=== PATIENT | female | born 1980 | race Caucasian/White ===

== ENCOUNTER 2016-06-14 10:40 | Emergency (ER) | payer MEDICAID ==
[~2016-06-14] VITALS: Wt 69.0 kg
[2016-06-14 12:10] LABS: BASOPHILS % 0.4 % (0.0-2.0); EOSINOPHILS # 0.1 10^3/ul (0.0-0.5); EOSINOPHILS % 1.7 % (0.0-7.0); HEMATOCRIT 41.1 % (37.0-47.0); HEMOGLOBIN 13.7 g/dl (12.0-16.0); LYMPHOCYTES # 2.3 10^3/ul (0.8-2.9); LYMPHOCYTES % 30.4 % (15.0-51.0); MEAN CORPUSCULAR HEMOGLOBIN 29.5 pg (29.0-33.0); MEAN CORPUSCULAR HGB CONC 33.3 g/dl (32.0-37.0); MEAN CORPUSCULAR VOLUME 88.7 fl (82.0-101.0); MEAN PLATELET VOLUME 10.4 fl (7.4-10.4); MONOCYTE # 0.5 10^3/ul (0.3-0.9); MONOCYTES % 6.3 % (0.0-11.0); NEUTROPHIL # 4.7 10^3/ul (1.6-7.5); NEUTROPHILS % 61.2 % (39.0-77.0); PLATELET COUNT 194 10^3/UL (140-440); RED BLOOD COUNT 4.63 10^6/ul (4.20-5.40); RED CELL DISTRIBUTION WIDTH 13.6 % (11.5-14.5); UNCORRECTED WBC 7.7 10^3/ul (4.8-10.8); WHITE BLOOD COUNT 7.7 10^3/ul (4.8-10.8)
[2016-06-14 12:14] LABS: CONDITION 1
[2016-06-14 12:36] LABS: ADD UMIC YES; URINE BILIRUBIN (Dip) NEGATIVE (NEGATIVE); URINE BLOOD (Dip) 3+ (NEGATIVE); URINE COLOR LT. YELLOW (YELLOW); URINE GLUCOSE (Dip) NEGATIVE (NEGATIVE); URINE KETONES (Dip) NEGATIVE (NEGATIVE); URINE LEUKOCYTE ESTERASE (Dip) NEGATIVE (NEGATIVE); URINE NITRITE (Dip) NEGATIVE (NEGATIVE); URINE TOTAL PROTEIN (Dip) NEGATIVE (NEGATIVE); URINE UROBILINOGEN (Dip) 0.2 E.U./dL (0.1-1.0)
--- NOTE | 2016-06-14 12:55 | RADRPT ---
PROCEDURE: OBSTETRICAL ULTRASOUND WITH ENDOVAGINAL IMAGES CLINICAL INDICATION: Vaginal Bleed () TECHNIQUE: Multiple sonographic images of the pelvis were obtained utilizing a transabdominal and endovaginal technique. The images were reviewed on a PACS workstation. COMPARISON: Pelvic ultrasound from 03/20/2015 LMP: 04/21/2016 FINDINGS: There is a single intrauterine with mean sac diameter of 2.23 cm and crown-rump length of 0.45 cm which is consistent with a gestational age of 6 weeks, 4-day . The estimated date of delivery by ultrasound is 02/03/2017 . The estimated gestational age by LMP is 7 weeks, 5-day . The estimated date of delivery by LMP is 01/26/2017 . No heart tones are detected. The right ovary measures 2.0 x 1.4 x 1.3 cm. The left ovary measures 2.8 x 1.3 x 2.1 cm. There is no rmal vascular flow in both ovaries. No significant ovarian lesions are seen. No significant pelvic free fluid is identified. IMPRESSION: A single intrauterine gestation is identified with a gestational age of 6 weeks, 4 days which is wit hin 8 days of dating by LMP, as above. No heart tones are detected, likely due to the early n ature of the although early demise cannot be excluded in the setting of vaginal blee ding. Short-term follow-up ultrasound and serial Beta HCG measurements are recommended for further evaluation. Bilateral ovaries and adnexa are unremarkable. RPTAT: EE Physician Mike Date Time Electronically viewed and signed by Physician Mike on 06/14/2016 12:55 /
[2016-06-14 12:56] LABS: SQUAMOUS EPITHELIAL CELL,UR MODERATE; URINE RBCS 0-2 /HPF (0)
--- NOTE | 2016-06-14 13:33 | ERD ---
ER Documentation Chief Complaint Date/Time DATE: 06/14/16 TIME: 13:31 Chief Complaint mild abd pain and scant vag bleed for 3 days. no nausea vomitng HPI Patient is a 36-year-old female who was sent here by her OB doctor because they were unable to find heart tone on ultrasound. Patient is approximately 7 weeks as she is with 4 spontaneous abortions. She has had vaginal bleeding over the last 4 days as she states is very mild and light. She has no pain. She denies any dysuria hematuria or frequency. She denies any nausea or vomiting. ROS All systems reviewed and are negative except as per history of present illness. Allergies Allergies: Coded Allergies: No Known Allergy (Verified , 03/20/15) PMhx/Soc History of Surgery: Yes (C SECTION X2) Anesthesia Reaction: No Hx Neurological Disorder: No Hx Respiratory Disorders: No Hx Cardiac Disorders: No Hx Psychiatric Problems: No Hx Miscellaneous Medical Probl: No Hx Alcohol Use: No Hx Substance Use: No Hx Tobacco Use: No FmHx Family History: No diabetes Physical Exam Vitals Vital Signs Date Time Temp Pulse Resp B/P Pulse Ox O2 Delivery O2 Flow Rate FiO2 06/14/16 10:43 98.7 69 21 110/56 98 Physical Exam General: well developed, well nourished, alert, nontoxic, no distress Head: normocephalic, atraumatic Neck: Supple, nontender, no lymphadenopathy, no midline tenderness Respiratory: Clear to auscaultation bilaterally, speaks in full sentences, no use of accesory muscles or labored breathing, no rales, ronchi, or wheezing Cardiovascular: RRR, No murmurs GI: soft, non tender, non distended, negative murphys sign, negative mcburneys point tenderness, no cva tenderness bilaterally, no rebound or guarding Result Diagram: 06/14/16 1155 Results 24 hrs Laboratory Tests Test 06/14/16 11:55 06/14/16 12:00 Basophils # 0.010^3/ul Basophils % 0.4% Beta HCG, Quantitative 53212.0mIU/ml Blood Morphology Comment Eosinophils # 0.110^3/ul Eosinophils % 1.7% Hematocrit 41.1% Hemoglobin 13.7g/dl Lymphocytes # 2.310^3/ul Lymphocytes % 30.4% Mean Corpuscular Hemoglobin 29.5pg Mean Corpuscular Hemoglobin Concent 33.3g/dl Mean Corpuscular Volume 88.7fl Mean Platelet Volume 10.4fl Monocytes # 0.510^3/ul Monocytes % 6.3% Neutrophils # 4.710^3/ul Neutrophils % 61.2% Nucleated Red Blood Cells # 0.010^3/ul Nucleated Red Blood Cells % 0.0/100WBC Platelet Count 11034^3/UL Red Blood Count 4.6310^6/ul Red Cell Distribution Width 13.6% White Blood Count 7.710^3/ul Urine Bilirubin NEGATIVE Urine Clarity HAZY Urine Color LT. YELLOW Urine Glucose NEGATIVE% Urine Hemoglobin 3+ Urine Ketones NEGATIVE Urine Leukocyte Esterase NEGATIVE Urine Microscopic RBC 0-2/HPF Urine Microscopic WBC 0-2/HPF Urine Nitrite NEGATIVE Urine Specific [place] 1.010 Urine Squamous Epithelial Cells MODERATE Urine Total Protein NEGATIVE Urine Urobilinogen 0.2 E.U./dL Urine pH 8.5 Procedures/MDM 36-year-old female presents with and vaginal bleeding. Vital signs are normal and she only has very mild pain if any pain at all she states. Labs were unremarkable. Ultrasound showed that they also were unable to find heart tone however they said he may be secondary to early versus demise. Patient was given copy of labs and ultrasound report so she can follow-up with OB and we recommended she return here in 2 days for follow-up examination so we can trend beta-hCGs and do a follow-up ultrasound. Recommended this patient follow up with her primary care doctor within 48 hours or return to the emergency room for any worsening of symptoms. However this time I do believe there is suitable for outpatient management. I answered all their questions and they agreed with the plan and were discharged home. Departure Diagnosis: Primary Impression: Threatened Condition: Stable Patient Instructions: Possible Miscarriage (Threatened ) Additional Instructions: Llame al doctor MAANA y terry chanel MAYTE PARA DENTRO DE 1-2 [place].Dgale a la secretaria que nosotros le instruimos hacer esta mayte.Avise o llame si van condicin se empeora antes de la mayte. Regresa aqui si peor o no mejor. TAY PAK PA-C Jun 14, 2016 13:33
== END 2016-06-14 13:41 | disposition home or self-care (01) ==
LOC: FTE 10:40
DX: O20.0 Threatened abortion (principal)
CPT/HCPCS: 76801; 76817; 81001; 84702; 85025; 86900; 86901; Z7502; 81003